=== PATIENT | male | born 1995 | race Two or more races ===

== ENCOUNTER 2020-02-07 10:06 | Emergency (ER) | payer MEDICAID ==
[~2020-02-07] VITALS: Ht 182.9 cm; Wt 89.8 kg
[2020-02-07 10:15] VITALS: BP 133/76
[2020-02-07] MEDS ORDERED: IBUPROFEN 800 MG TAB PO ONE (10:45)
== END 2020-02-07 11:24 | disposition home or self-care (01) ==
LOC: ER 10:06
DX: S62.316A Displaced fracture of base of fifth metacarpal bone, right hand, initial encounter for closed fracture (principal); W01.198A Fall on same level from slipping, tripping and stumbling with subsequent striking against other object, initial encounter; Y93.89 Activity, other specified; Y92.89 Other specified places as the place of occurrence of the external cause; Y99.8 Other external cause status
CPT/HCPCS: 29125; 73130

== ENCOUNTER 2020-04-05 22:16 | Emergency (ER) | payer SELFPAY ==
[~2020-04-05] VITALS: Ht 182.9 cm; Wt 87.1 kg
[2020-04-05 22:27] VITALS: BP 125/85
[2020-04-06] MEDS ORDERED: PENICILLIN G BENZ 1200000 UNITS/2 ML SYRG IM ONE (03:15)
== END 2020-04-06 04:35 | disposition left against medical advice (07) ==
LOC: ER 22:17
DX: J02.9 Acute pharyngitis, unspecified (principal); Z53.21 Procedure and treatment not carried out due to patient leaving prior to being seen by health care provider
CPT/HCPCS: 87804; 87880